=== PATIENT | female | born 1980 | race Native Hawaiian/Other Pacific Islander ===

== ENCOUNTER 2016-08-08 19:52 | Emergency (ER) | payer OTHER ==
[~2016-08-08] VITALS: Ht 165.1 cm; Wt 102.5 kg
[2016-08-08 22:45] LABS: POTASSIUM 3.7 mmol/L (3.6-5.2); SODIUM 135 mmol/L (136-145)
[2016-08-08 23:03] LABS: PLATELET COUNT 287 K/uL (152-353)
[2016-08-09 00:23] VITALS: BP 149/82; TEMP 98.1
== END 2016-08-09 00:23 | disposition home or self-care (01) ==
LOC: ED 19:52
PROVIDERS: Specialist
DX: N20.0 Calculus of kidney (principal)
CPT/HCPCS: 36415; 80048; 81000; 85027; 96361; 96374; 96375; 99284; J1885; J2550

== ENCOUNTER 2019-05-25 05:26 | Emergency (ER) | payer OTHER ==
[~2019-05-25] VITALS: Ht 165.1 cm; Wt 97.1 kg
[2019-05-25] MEDS ORDERED: FISH OIL1 C10 PO (05:44)
[2019-05-25] MEDS ORDERED: CETI10TA PO (05:44)
[2019-05-25] MEDS ORDERED: SINGULAIR4 MG PO (05:44)
[2019-05-25] MEDS ORDERED: MULTI VITAMIN1 TAB PO (05:44)
[2019-05-25] MEDS ORDERED: FLONASE AL50 MCG/ACT INH (05:45)
[2019-05-25 06:08] LABS: POTASSIUM 3.9 mmol/L (3.6-5.2)
[2019-05-25 06:47] LABS: PLATELET COUNT 288 K/uL (152-353)
[2019-05-25 07:13] VITALS: BP 129/66; TEMP 98.1
== END 2019-05-25 07:13 | disposition home or self-care (01) ==
LOC: ED 05:26
PROVIDERS: Student in an Organized Health Care Education/Training Program
DX: N20.1 Calculus of ureter (principal)
CPT/HCPCS: 36415; 80053; 81000; 81025; 83690; 83735; 85027; 96360; 96375; 99284; J1885; J2405

== ENCOUNTER 2019-07-01 21:02 | Emergency (ER) | payer OTHER ==
[~2019-07-01] VITALS: Ht 165.1 cm; Wt 97.1 kg
[~2019-07-01 21:02] MED LIST: CETI10TA PO; FISH OIL1 C10 PO; FLONASE AL50 MCG/ACT INH; MULTI VITAMIN1 TAB PO; SINGULAIR4 MG PO
[2019-07-01 21:37] LABS: PLATELET COUNT 342 K/uL (152-353)
[2019-07-01 21:41] LABS: POTASSIUM 3.9 mmol/L (3.6-5.2)
[2019-07-01 23:18] VITALS: BP 147/78; TEMP 98
== END 2019-07-01 23:18 | disposition home or self-care (01) ==
LOC: ED 21:02
PROVIDERS: Hospitalist
DX: N20.0 Calculus of kidney (principal); Z87.442 Personal history of urinary calculi
CPT/HCPCS: 36415; 80053; 81000; 81025; 85027; 96360; 96375; 96376; 99284; J1170; J1885; J2405

== ENCOUNTER 2019-08-07 20:31 | Emergency (ER) | payer OTHER ==
[~2019-08-07] VITALS: Ht 165.1 cm; Wt 97.5 kg
[2019-08-07 21:23] LABS: PLATELET COUNT 273 K/uL (152-353)
[2019-08-07 23:20] VITALS: BP 127/69; TEMP 98.5
== END 2019-08-07 23:20 | disposition home or self-care (01) ==
LOC: ED 20:31
PROVIDERS: Emergency Medicine
DX: N20.0 Calculus of kidney (principal); N13.2 Hydronephrosis with renal and ureteral calculous obstruction; D72.828 Other elevated white blood cell count; Z87.442 Personal history of urinary calculi
CPT/HCPCS: 36415; 80053; 81000; 85027; 87086; 87088; 96360; 96365; 96372; 96374; 96375; 99284; J1885; J2175; J2405

== ENCOUNTER 2021-01-22 09:27 | Inpatient (IN) | payer OTHER ==
[~2021-01-22] VITALS: Ht 165.1 cm; Wt 106.6 kg
[2021-01-22] VITALS (7 sets, daily range): BP systolic 106–187; BP diastolic 63–143; TEMP 97.7–100.4; Ht 165.1 cm; Wt 106.6 kg
[2021-01-22 10:02] LABS: PLATELET COUNT 166 K/uL (152-353)
[2021-01-22 10:10] LABS: POTASSIUM 3.7 mmol/L (3.6-5.2)
[2021-01-22 10:27] LABS: PARTIAL THROMBOPLASTIN TIME 29.1 SECONDS (24.5-33.6)
[2021-01-22] MEDS ORDERED: LIPITOR20 MG PO (18:32)
[2021-01-22] MEDS ORDERED: TESSALON PER100 MG PO (18:34)
[2021-01-23] VITALS (7 sets, daily range): BP systolic 103–141; BP diastolic 44–73; TEMP 99–212
[2021-01-23 05:56] LABS: PLATELET COUNT 161 K/uL (152-353)
[2021-01-23 06:05] LABS: POTASSIUM 3.3 mmol/L (3.6-5.2)
[2021-01-24 03:54] VITALS: BP 118/69; TEMP 99.1
[2021-01-24 05:38] LABS: PLATELET COUNT 217 K/uL (152-353)
[2021-01-24 08:00] VITALS: BP 116/66; TEMP 98.3
[2021-01-24 12:00] VITALS: BP 114/69; TEMP 97.7
[2021-01-24 16:00] VITALS: BP 122/72; TEMP 97.5
[2021-01-24 20:00] VITALS: BP 113/66; TEMP 99
[2021-01-25] VITALS: BP 120/80; TEMP 99.8
[2021-01-25 04:00] VITALS: BP 123/71; TEMP 97.9
[2021-01-25 05:09] LABS: PLATELET COUNT 247 K/uL (152-353)
[2021-01-25 05:27] LABS: POTASSIUM 3.4 mmol/L (3.6-5.2)
[2021-01-25 08:00] VITALS: BP 114/66; TEMP 97.9
[2021-01-25 12:00] VITALS: BP 121/72; TEMP 98.5
[2021-01-25 16:00] VITALS: BP 135/71; TEMP 97.9
[2021-01-25 20:00] VITALS: BP 123/80; TEMP 98.4
[2021-01-26] VITALS: BP 111/67; TEMP 98.5
[2021-01-26 04:00] VITALS: BP 113/72; TEMP 98.9
[2021-01-26 04:29] LABS: POTASSIUM 3.4 mmol/L (3.6-5.2)
[2021-01-26 04:38] LABS: PLATELET COUNT 289 K/uL (152-353)
[2021-01-26 08:00] VITALS: BP 102/60; TEMP 98.7
[2021-01-26 12:00] VITALS: BP 128/68; TEMP 98.73
[2021-01-26 16:00] VITALS: BP 121/65; TEMP 98
[2021-01-26 20:00] VITALS: BP 133/87; TEMP 98.5
[2021-01-27] VITALS (7 sets, daily range): BP systolic 113–130; BP diastolic 59–81; TEMP 98.4–100.1
[2021-01-27 04:57] LABS: POTASSIUM 3.5 mmol/L (3.6-5.2)
[2021-01-27 05:55] LABS: PLATELET COUNT 334 K/uL (152-353)
[2021-01-28 03:00] VITALS: BP 118/77; TEMP 99
[2021-01-28 04:05] VITALS: BP 112/67; TEMP 100
[2021-01-28 05:03] LABS: PLATELET COUNT 351 K/uL (152-353)
[2021-01-28 08:00] VITALS: BP 135/76; TEMP 98.9
[2021-01-28 12:00] VITALS: BP 108/64; TEMP 99.6
[2021-01-28 16:00] VITALS: BP 108/60; TEMP 100.2
[2021-01-28 20:00] VITALS: BP 97/51; TEMP 99
[2021-01-29] VITALS (9 sets, daily range): BP systolic 98–144; BP diastolic 50–80; TEMP 99–101
[2021-01-29 08:00] LABS: PLATELET COUNT 449 K/uL (152-353)
[2021-01-29 08:15] LABS: POTASSIUM 3.1 mmol/L (3.6-5.2)
[2021-01-30 00:14] VITALS: TEMP 100.3
[2021-01-30 03:33] VITALS: TEMP 99.3
[2021-01-30 05:30] LABS: PLATELET COUNT 383 K/uL (152-353)
[2021-01-30 06:02] LABS: POTASSIUM 3.9 mmol/L (3.6-5.2)
[2021-01-30 08:00] VITALS: TEMP 100.8
[2021-01-30 12:00] VITALS: TEMP 100.1
[2021-01-30 16:00] VITALS: TEMP 100.2
[2021-01-30 20:00] VITALS: TEMP 99.1
[2021-01-31 00:01] VITALS: TEMP 99.5
[2021-01-31 04:00] VITALS: TEMP 98
[2021-01-31 05:35] LABS: PLATELET COUNT 439 K/uL (152-353)
[2021-01-31 06:43] LABS: POTASSIUM 4.3 mmol/L (3.6-5.2)
== END 2021-02-01 00:05 | disposition short-term general hospital (02) | DRG 208 ==
LOC: ED 09:27 → MED/SURG 10:45 → ICU 01-29 01:21
PROVIDERS: Hospitalist; Internal Medicine Endocrinology, Diabetes & Metabolism; ADMIT Internal Medicine; ATTEND Internal Medicine
PROC: 5A1945Z Respiratory Ventilation, 24-96 Consecutive Hours (ICD-10-PCS; principal; 2021-01-29)
PROC: 0BH17EZ Insertion of Endotracheal Airway into Trachea, Via Natural or Artificial Opening (ICD-10-PCS; 2021-01-29)
PROC: 05HN33Z Insertion of Infusion Device into Left Internal Jugular Vein, Percutaneous Approach (ICD-10-PCS; 2021-01-29)
PROC: B544ZZA Ultrasonography of Left Jugular Veins, Guidance (ICD-10-PCS; 2021-01-29)
DX: U07.1 COVID-19 (principal); J12.82 Pneumonia due to coronavirus disease 2019; J96.01 Acute respiratory failure with hypoxia; E46 Unspecified protein-calorie malnutrition; E78.49 Other hyperlipidemia; E87.6 Hypokalemia; D72.828 Other elevated white blood cell count; D64.89 Other specified anemias; E88.09 Other disorders of plasma-protein metabolism, not elsewhere classified; E66.01 Morbid (severe) obesity due to excess calories; I10 Essential (primary) hypertension
CPT/HCPCS: 31500; 36415; 36591; 36600; 80053; 80061; 81000; 82550; 82728; 82805; 83735; 83880; 84100; 84484; 85007; 85027; 85379; 85610; 85730; 86140; 87040; 87635; 93005; 94002; 94003; 94660; 94664; 94667; 94668; 94760; 96360; 96365; 96366; 96372; 96374; 96375; 96376; 99284; C1768; J0132; J0360; J0456; J0696; J1100; J1650; J1940; J1956; J2250; J2405; J2543; J3010; J3020; J3370; J3411; J3480; J3490; Q9963; U0003

== ENCOUNTER 2021-08-06 16:39 | Emergency (ER) | payer OTHER ==
[~2021-08-06] VITALS: Ht 165.1 cm; Wt 82.1 kg
[~2021-08-06 16:39] MED LIST changes: +LIPITOR20 MG PO; +TESSALON PER100 MG PO
[2021-08-06] MEDS ORDERED: AZIT250T3 PO (19:14)
[2021-08-06 19:15] VITALS: BP 132/88; TEMP 98.4
== END 2021-08-06 19:15 | disposition home or self-care (01) ==
LOC: ED 16:39
DX: H65.191 Other acute nonsuppurative otitis media, right ear (principal)
CPT/HCPCS: 87502; 87651; 99283

== ENCOUNTER 2021-08-17 14:31 | Outpatient (CLI) | payer OTHER ==
[~2021-08-17 14:31] MED LIST changes: +AZIT250T3 PO
== END 2021-08-17 20:29 | disposition home or self-care (01) ==
LOC: MRI 14:31
PROVIDERS: ATTEND Optometrist
DX: H49.12 Fourth [trochlear] nerve palsy, left eye (principal)
CPT/HCPCS: A9576

== ENCOUNTER 2021-08-29 12:05 | Outpatient (CLI) | payer OTHER | END 2021-08-29 19:23 | disposition home or self-care (01) | LOC: LABW 12:05 | PROVIDERS: ATTEND Optometrist | DX: H05.242 Constant exophthalmos, left eye (principal); H50.21 Vertical strabismus, right eye; H02.844 Edema of left upper eyelid | CPT/HCPCS: 36415; 84436; 84443; 84480 ==

== ENCOUNTER 2021-09-21 09:28 | Outpatient (CLI) | payer OTHER | END 2021-09-21 20:51 | disposition home or self-care (01) | LOC: LABW 09:28 | PROVIDERS: ATTEND Optometrist | DX: H05.20 Unspecified exophthalmos (principal); H34.822 Venous engorgement, left eye | CPT/HCPCS: 36415; 86038 ==

== ENCOUNTER 2021-10-09 05:15 | Inpatient (IN) | payer OTHER ==
[~2021-10-09] VITALS: Ht 165.1 cm; Wt 97.6 kg
[2021-10-09 05:21] VITALS: BP 127/81; TEMP 98.8
[2021-10-09 06:45] LABS: PLATELET COUNT 221 K/uL (152-353)
[2021-10-09 10:30] VITALS: BP 139/78; TEMP 97.9; Ht 165.1 cm; Wt 97.6 kg
[2021-10-09 12:30] VITALS: BP 139/73; TEMP 98.2
[2021-10-09] MEDS ORDERED: AMLODIPINE BESYLATE PO (13:54)
[2021-10-09] MEDS ORDERED: ELIQUIS5 MG PO (13:54)
[2021-10-09] MEDS ORDERED: MONTELUKAST SOD10 MG PO (13:56)
[2021-10-09] MEDS ORDERED: CETI10TA PO (13:56)
[2021-10-09] MEDS ORDERED: FISH OIL1000 M1 PO (13:57)
[2021-10-09] MEDS ORDERED: MULTIVITAMI1 PO (13:58)
[2021-10-09] MEDS ORDERED: CLARITIN10 M1 PO (13:59)
[2021-10-09] MEDS ORDERED: L-LYSINE500 MG PO (14:00)
[2021-10-09] MEDS ORDERED: BREO ELLIPTA 201 INH INH (14:00)
[2021-10-09 17:21] VITALS: BP 127/69; TEMP 98.5
[2021-10-09 20:00] VITALS: BP 137/73; TEMP 98.2
[2021-10-10] VITALS: BP 140/79; TEMP 98.1
[2021-10-10 04:00] VITALS: BP 108/63; TEMP 97.9
[2021-10-10 08:00] VITALS: BP 108/65; TEMP 98
[2021-10-10 12:00] VITALS: BP 125/68; TEMP 97.9
[2021-10-10 12:01] LABS: PLATELET COUNT 332 K/uL (152-353)
[2021-10-10 12:11] LABS: POTASSIUM 3.6 mmol/L (3.6-5.2)
[2021-10-10 16:00] VITALS: BP 124/76; TEMP 97.9
[2021-10-10 20:00] VITALS: BP 106/76; TEMP 98.1
[2021-10-11 00:01] VITALS: BP 109/56; TEMP 98
[2021-10-11 04:00] VITALS: BP 107/65; TEMP 98
[2021-10-11 04:59] LABS: PLATELET COUNT 288 K/uL (152-353)
[2021-10-11 05:24] LABS: POTASSIUM 3.6 mmol/L (3.6-5.2)
[2021-10-11 08:00] VITALS: BP 119/68; TEMP 98
[2021-10-11 12:00] VITALS: BP 155/68; TEMP 97.7
[2021-10-11 16:00] VITALS: BP 110/60; TEMP 98
[2021-10-11 20:05] VITALS: BP 90/54; TEMP 98
[2021-10-12 00:01] VITALS: BP 110/71; TEMP 97.8
[2021-10-12 04:00] VITALS: BP 112/70; TEMP 98.2
[2021-10-12 08:00] VITALS: BP 104/59; TEMP 97.9
[2021-10-12 12:26] LABS: PLATELET COUNT 300 K/uL (152-353)
[2021-10-12 12:33] LABS: POTASSIUM 3.3 mmol/L (3.6-5.2)
[2021-10-12 20:00] VITALS: BP 140/73; TEMP 98
[2021-10-13] VITALS: BP 115/64; TEMP 97.9
[2021-10-13 04:00] VITALS: BP 114/59; TEMP 97.9
[2021-10-13 08:00] VITALS: BP 116/61; TEMP 98.1
[2021-10-13] MEDS ORDERED: AZIT250T3 PO (09:39)
[2021-10-13] MEDS ORDERED: IPRAAER INH (09:39)
[2021-10-13] MEDS ORDERED: PRED20TA27 PO (09:40)
[2021-10-13] MEDS ORDERED: CEFD300C2 PO (09:40)
== END 2021-10-13 15:20 | disposition home or self-care (01) | DRG 177 ==
LOC: ED 05:15 → MED/SURG 08:30
PROVIDERS: ADMIT Emergency Medicine Emergency Medical Services; ATTEND Internal Medicine
DX: U07.1 COVID-19 (principal); J12.82 Pneumonia due to coronavirus disease 2019; J96.21 Acute and chronic respiratory failure with hypoxia; I82.591 Chronic embolism and thrombosis of other specified deep vein of right lower extremity; R62.7 Adult failure to thrive; E66.8 Other obesity; Z68.36 Body mass index [BMI] 36.0-36.9, adult; I10 Essential (primary) hypertension
CPT/HCPCS: 36415; 36600; 80048; 80053; 81002; 81015; 82805; 83516; 83605; 83735; 84484; 85027; 85610; 86037; 87040; 87502; 87635; 87651; 93005; 94664; 94667; 94760; 96360; 96365; 96375; 99284; J0248; J0456; J0696; J1100; J2930; U0003

== ENCOUNTER 2022-07-27 20:17 | Emergency (ER) | payer OTHER ==
[~2022-07-27] VITALS: Ht 165.1 cm; Wt 95.7 kg
[~2022-07-27 20:17] MED LIST changes: +AMLODIPINE BESYLATE PO; +BREO ELLIPTA 201 INH INH; +CEFD300C2 PO; +CLARITIN10 M1 PO; +ELIQUIS5 MG PO; +FISH OIL1000 M1 PO; +IPRAAER INH; +L-LYSINE500 MG PO; +MONTELUKAST SOD10 MG PO; +MULTIVITAMI1 PO; +PRED20TA27 PO
[2022-07-27 20:25] VITALS: TEMP 98.5
[2022-07-28 01:15] VITALS: BP 107/77
== END 2022-07-28 01:15 | disposition home or self-care (01) ==
LOC: ED 20:17
DX: J01.00 Acute maxillary sinusitis, unspecified (principal); J02.9 Acute pharyngitis, unspecified; M26.601 Right temporomandibular joint disorder, unspecified; Z99.81 Dependence on supplemental oxygen
CPT/HCPCS: 87502; 87635; 87651; 96372; 99283; J1885; U0003

== ENCOUNTER 2022-09-19 15:45 | Outpatient (CLI) | payer OTHER ==
[2022-09-19 16:13] LABS: PLATELET COUNT 358 K/uL (152-353)
== END 2022-09-19 19:26 | disposition home or self-care (01) ==
LOC: LABW 15:45
PROVIDERS: ATTEND Internal Medicine Critical Care Medicine
DX: J45.909 Unspecified asthma, uncomplicated (principal); R06.09 Other forms of dyspnea; G47.19 Other hypersomnia; J98.4 Other disorders of lung; R53.81 Other malaise; R29.818 Other symptoms and signs involving the nervous system; J31.0 Chronic rhinitis; Z87.891 Personal history of nicotine dependence; Z86.718 Personal history of other venous thrombosis and embolism; Z87.09 Personal history of other diseases of the respiratory system
CPT/HCPCS: 36415; 82785; 83880; 85027; 86003; 86140

== ENCOUNTER 2022-10-29 14:56 | Inpatient (IN) | payer OTHER ==
[2022-10-29] VITALS: BP 129/70; TEMP 97.83
[~2022-10-29] VITALS: Ht 165.1 cm; Wt 97.7 kg
[2022-10-29 15:05] VITALS: BP 132/81; TEMP 99.7
[2022-10-29 16:03] LABS: PLATELET COUNT 355 K/uL (152-353)
[2022-10-29 16:12] LABS: POTASSIUM 3.8 mmol/L (3.6-5.2)
[2022-10-29] MEDS ORDERED: DULO30CA PO (20:39)
[2022-10-29] MEDS ORDERED: TRELEGY ELLIPTA1 AER INH (20:55)
[2022-10-30] VITALS (7 sets, daily range): BP systolic 114–142; BP diastolic 65–88; TEMP 97.5–98.4; Ht 165.1 cm; Wt 97.7 kg
[2022-10-30 05:06] LABS: PLATELET COUNT 293 K/uL (152-353)
[2022-10-31] VITALS: BP 129/81; TEMP 97.9
[2022-10-31 04:00] VITALS: BP 128/75; TEMP 98
[2022-10-31 07:57] LABS: PLATELET COUNT 333 K/uL (152-353)
[2022-10-31 08:00] VITALS: BP 153/92; TEMP 98
[2022-10-31 08:09] LABS: POTASSIUM 4.3 mmol/L (3.6-5.2)
[2022-10-31 12:00] VITALS: BP 128/71; TEMP 97.4
[2022-10-31] MEDS ORDERED: AZIT250T3 PO (16:13)
[2022-10-31] MEDS ORDERED: PREDNISONE10 M1 PO (16:14)
== END 2022-10-31 18:30 | disposition home or self-care (01) | DRG 153 ==
LOC: ED 14:56 → MED/SURG 19:30
PROVIDERS: Internal Medicine; ADMIT Family Medicine; ATTEND Internal Medicine Endocrinology, Diabetes & Metabolism
DX: J06.9 Acute upper respiratory infection, unspecified (principal); J45.901 Unspecified asthma with (acute) exacerbation; Z87.891 Personal history of nicotine dependence; Z86.718 Personal history of other venous thrombosis and embolism; Z79.01 Long term (current) use of anticoagulants; I10 Essential (primary) hypertension; E78.49 Other hyperlipidemia; F32.A Depression, unspecified; Z99.81 Dependence on supplemental oxygen
CPT/HCPCS: 36415; 80048; 80053; 81000; 81025; 85027; 94664; 94760; 96365; 96367; 99284; J0456; J0696; J1650; J2920; J2930

== ENCOUNTER 2022-12-13 13:57 | Outpatient (CLI) | payer OTHER ==
[~2022-12-13 13:57] MED LIST changes: +DULO30CA PO; +PREDNISONE10 M1 PO; +TRELEGY ELLIPTA1 AER INH
== END 2022-12-13 19:03 | disposition home or self-care (01) ==
LOC: CT 13:57 → RESP 13:57 → CT 15:00
PROVIDERS: ATTEND Internal Medicine Critical Care Medicine
DX: J98.4 Other disorders of lung (principal); J45.909 Unspecified asthma, uncomplicated; Z87.891 Personal history of nicotine dependence; R53.81 Other malaise; Z86.16 Personal history of COVID-19

== ENCOUNTER 2022-12-18 09:06 | Observation (INO) | payer OTHER ==
[~2022-12-18] VITALS: Ht 165.1 cm; Wt 101.4 kg
[2022-12-18] VITALS (7 sets, daily range): BP systolic 112–120; BP diastolic 67–79; TEMP 97.8–98.3; Ht 165.1 cm; Wt 101.4 kg
[2022-12-18 10:01] LABS: PLATELET COUNT 342 K/uL (152-353)
[2022-12-18] MEDS ORDERED: ALBUTEROL0.083 % INH (14:13)
[2022-12-18] MEDS ORDERED: AMLODIPINE BESYLATE PO (14:31)
[2022-12-18] MEDS ORDERED: TRELEGY ELLIPTA1 AE1 INH (14:32)
[2022-12-19 04:00] VITALS: BP 118/72; TEMP 98
[2022-12-19 05:18] LABS: PLATELET COUNT 288 K/uL (152-353)
[2022-12-19 05:25] LABS: POTASSIUM 3.6 mmol/L (3.6-5.2)
[2022-12-19 07:53] VITALS: BP 127/82; TEMP 97.8
== END 2022-12-19 10:47 | disposition home or self-care (01) ==
LOC: ED 09:06 → MED/SURG 11:28
PROVIDERS: Family Medicine; ADMIT Nurse Practitioner Family; ATTEND Internal Medicine Endocrinology, Diabetes & Metabolism
DX: R07.89 Other chest pain (principal); R06.02 Shortness of breath; R11.0 Nausea; Z87.891 Personal history of nicotine dependence; J44.9 Chronic obstructive pulmonary disease, unspecified; Z86.718 Personal history of other venous thrombosis and embolism; Z79.01 Long term (current) use of anticoagulants; I10 Essential (primary) hypertension; E66.9 Obesity, unspecified; Z68.36 Body mass index [BMI] 36.0-36.9, adult
CPT/HCPCS: 36415; 80048; 80053; 80061; 81025; 84484; 85027; 85379; 93005; 96374; 99221; 99284; G0378; J2405